=== PATIENT | female | born 1980 | race Caucasian/White ===

== ENCOUNTER → 2017-05-16 | Outpatient (CLI) | payer BC ==
[2017-05-16 12:15] LABS: HEMATOCRIT 42.4 % (37-47); HEMOGLOBIN 14.7 g/dL (12.0-16.0); MEAN CELL VOLUME 86.9 fL (80-100); MEAN CORPUSCULAR HEMOGLOBIN 30.1 pg (25-34); MEAN CORPUSCULAR HGB CONC 34.7 g/dl (32-36); PLATELET COUNT 289 K/uL (130-400); RED CELL DISTRIBUTION WIDTH CV 12.6 % (11.5-14.5); RED CELL DISTRIBUTION WIDTH SD 40.2 fL (36.4-46.3); WHITE BLOOD COUNT 4.96 K/uL (4.8-10.8)
[2017-05-16 12:39] LABS: PROLACTIN 10.69 ng/mL
[2017-05-16 13:18] LABS: HEP C IGG 13 YRS+OLDER_RFLX NEG (NEG)
== END | disposition home or self-care (01) ==
LOC: C.LAB1850 09:54
PROVIDERS: ATTEND Specialist
DX: Z13.0 Encounter for screening for diseases of the blood and blood-forming organs and certain disorders involving the immune mechanism (principal); Z11.59 Encounter for screening for other viral diseases; Z11.3 Encounter for screening for infections with a predominantly sexual mode of transmission; Z11.4 Encounter for screening for human immunodeficiency virus [HIV]; Z13.29 Encounter for screening for other suspected endocrine disorder; Z13.21 Encounter for screening for nutritional disorder; Z01.83 Encounter for blood typing

== ENCOUNTER → 2017-06-03 | Outpatient (CLI) | payer BC ==
--- NOTE | 2017-06-03 10:11 | DIAGNOSTIC IMAGING REPORT ---
HYSTEROSALPINGOGRAM CLINICAL HISTORY: 36 years-old Female presenting with Z31.41 infertility. TECHNIQUE: The cervix was cannulated by the steam distribution supervisor-loading dock helper and water soluble contrast was instilled into the uterus under fluoroscopic guidance. Multiple spot images were obtained. COMPARISON: None. FINDINGS: The uterine cavity is normal in size, shape, and position. The fallopian tubes are patent, and there is free peritoneal spill bilaterally. Fluoroscopy dosage (mGy): Not available. Fluoroscopy time: 0.3 minutes. Number of fluoroscopic spot images: 2. IMPRESSION: Normal hysterosalpingogram. Electronically signed by: Kris Wiley M.D. 06/03/2017 10:09 AM Dictated Date/Time: 06/03/2017 10:09 AM
--- NOTE | 2017-06-03 23:59 | Progress Note ---
Progress Note Date of Service Jun 03, 2017. Progress Note I met the patient in radiology suite, confirmed consent, then positioned her in dorsal lithotomy. Speculum introduced to the vagina, cervix cleansed with betadine, anterior lip grasped with tenaculum, and Gray's cannula placed against external os. Contrast was infused under fluoroscopy. Following satisfactory imaging per radiologist, the procedure was completed by removal of all instruments. Patient was in stable condition when I left her in radiology.
== END | disposition home or self-care (01) ==
LOC: C.RAD 08:42
PROVIDERS: ATTEND Obstetrics & Gynecology
DX: Z31.41 Encounter for fertility testing (principal)

== ENCOUNTER → 2017-06-25 | Outpatient (CLI) | payer BC ==
[2017-06-25 14:17] LABS: FOLLICLE STIMULAT HORMONE 6.31 IU/L; LUTEINIZING HORMONE 5.2 IU/L; PROLACTIN 13.41 ng/mL
== END | disposition home or self-care (01) ==
LOC: C.LAB1850 13:07
PROVIDERS: ATTEND Specialist
DX: Z31.41 Encounter for fertility testing (principal); Z31.430 Encounter of female for testing for genetic disease carrier status for procreative management

== ENCOUNTER → 2017-08-19 | Outpatient (CLI) | payer BC ==
[~2017-08-19] MED LIST: BCP PO; MULT-506 PO
[2017-08-19 17:38] LABS: BASO % 0.8 %; BASO ABS # 0.05 K/uL (0-0.2); EOS % 2.2 %; EOS ABS # 0.14 K/uL (0-0.5); HEMATOCRIT 39.4 % (37-47); HEMOGLOBIN 13.5 g/dL (12.0-16.0); IG# 0.01 K/uL (0.00-0.02); LYMPH % 32.5 %; LYMPH ABS # 2.05 K/uL (1.2-3.4); MEAN CELL VOLUME 87.2 fL (80-100); MEAN CORPUSCULAR HEMOGLOBIN 29.9 pg (25-34); MEAN CORPUSCULAR HGB CONC 34.3 g/dl (32-36); MEAN PLATELET VOLUME 9.9 fL (7.4-10.4); MONO % 8.7 %; MONO ABS # 0.55 K/uL (0.11-0.59); NEUT % 55.6 %; NEUT ABS # 3.51 K/uL (1.4-6.5); PLATELET COUNT 295 K/uL (130-400); RED CELL DISTRIBUTION WIDTH CV 12.7 % (11.5-14.5); RED CELL DISTRIBUTION WIDTH SD 40.7 fL (36.4-46.3); WHITE BLOOD COUNT 6.31 K/uL (4.8-10.8)
== END | disposition home or self-care (01) ==
LOC: C.LAB1850 16:02
PROVIDERS: ATTEND Obstetrics & Gynecology
DX: Z01.818 Encounter for other preprocedural examination (principal)

== ENCOUNTER → 2017-09-03 | Day surgery (SDC) | payer BC ==
[2017-08-07 14:50] VITALS: Ht 157.5 cm; Wt 50.9 kg
--- NOTE | 2017-08-19 17:28 | HISTORY & PHYSICAL EXAMINATION ---
DATE OF ADMISSION: 09/03/2017 ADMITTING DIAGNOSIS: Endometrial polyp. ADMISSION HISTORY: The patient is a 37-year-old 0, last menstrual period of 22 July, who is admitted for diagnostic hysteroscopy, D&C and removal of endometrial polyp. The patient was being worked up by infertility clinic for an IVF cycle. Pelvic ultrasound showed what appeared to be an endometrial polyp. Treatment options have been discussed and the patient has been admitted for the above listed procedure. PAST MEDICAL HISTORY: OB: Nulligravida. FREELANCE WEB DESIGNER: As above. MEDICAL: None. SURGICAL: [place] teeth extraction. ALLERGIES: No known drug allergies. SOCIAL HISTORY: No smoking. FAMILY HISTORY: Noncontributory. REVIEW OF SYSTEMS: As per HPI. ADMISSION PHYSICAL EXAMINATION: GENERAL: Pleasant female in no acute distress. VITAL SIGNS: Blood pressure 118/70, height of 5 feet 2 inches, weight 115 pounds. HEENT EXAMINATION: Unremarkable. NECK: Supple. LUNGS: Clear. HEART: With a regular rhythm and rate. ABDOMEN: Soft, nontender. PELVIC: Normal external genitalia, vaginal wall pink and rugated. Cervical os is nulliparous and closed. Bimanual examination shows an anterior mobile uterus. Adnexa show no palpable masses. RECTAL: Confirmatory. EXTREMITIES: Shows no deep calf tenderness. NEUROLOGIC: Grossly intact. IMPRESSION: 37-year-old 0 for diagnostic hysteroscopy, D&C for presumed endometrial polyp. PLAN: The risks, benefits, and alternatives to the surgery have been discussed. While the benefits will be evaluation of the endometrial lining and removal of any tissue, the risks are bleeding, infection, inadvertent perforation of the uterus, or failure to diagnose and/or treat the problem. The patient understands this, permit has been signed, and she wishes to proceed.
[~2017-09-03] VITALS: Ht 157.5 cm; Wt 50.9 kg
[~2017-09-03] MED LIST changes: +ATROPINE SULFATE 0.1 MG/ML 5ML SYR IV PRN; +DEXAMETHASONE SOD INJ 4 MG/ML VIAL ONE; +EpHEDrine SULFATE INJ 50 MG/ML AMP IV PRN; +FENTANYL CITRATE INJ 50 MCG/1 ML 2 ML VIAL IV PRN; +FENTANYL CITRATE INJ 50 MCG/1 ML 2 ML VIAL ONE; +IBUPROFEN 600 MG TAB PO PRN; +KETOROLAC TROMETHAMINE 30 MG/ML VIAL IV. PRN; +KETOROLAC TROMETHAMINE 30 MG/ML VIAL ONE; +LACTATED RINGER'S 1000ML 1,000 ML IV SCH; +LIDOCAINE HCL 2% 2 ML VIAL (20MG/ML) ONE; +MIDAZOLAM HCL 1 MG/ML 2ML VIAL ONE; +ONDANSETRON INJ 2 MG/ML 2 ML VIAL IV PRN; +ONDANSETRON INJ 2 MG/ML 2 ML VIAL ONE; +PROPOFOL IV EMULSION 10 MG/ML 20 ML VIAL ONE; +SODIUM CHLORIDE 0.9% 1000ML 1,000 ML IV SCH
--- NOTE | 2017-09-03 11:55 | History & Physical Bridge - SC ---
H&P Re-Evaluation Bridge Note: I have examined the patient, reviewed the History & Physical and in the interval since the performance of the History & Physical I have noted the following changes of clinical significance: No changes noted
--- NOTE | 2017-09-03 13:24 | [facility] Post Operative Brief Note ---
Immediate Operative Summary Operative Date September 03, 2017. Pre-Operative Diagnosis Endometrial Polyp Post-Operative Diagnosis same Procedure(s) Performed Hysteroscopy, Polypectomy Surgeon Dr. Timur Carrera Medical Science Liaison Surgeon(s) 0 Estimated Blood Loss minimal Findings See Below small left fundal polyp excised Specimens A. Endometrial Polyp Anesthesia Type General Complication(s) none Disposition Accompanied Pt To Recovery: yes Disposition: Recovery Room / PACU
--- NOTE | 2017-09-03 13:30 | Discharge Instructions-SurgCtr ---
Discharge Instructions Date of Service September 03, 2017. Visit Reason for Visit: Endometrial Polyp Discharge Discharge Diagnosis / Problem: same Discharge Goals Goal(s): Therapeutic intervention Activity Recommendations Activity Limitations: as noted below Anesthesia . Post Anesthesia Instructions: If you have had General Anesthesia or IV Sedation: * Do not drive today. * Resume driving when surgeon permits. * Do not make important decisions or sign legal documents today. * Call surgeon for: 1. Temperature elevations greater than 101 degrees F. 2. Uncontrollable pain. 3. Excessive bleeding. 4. Persistent nausea and vomiting. 5. Medication intolerance (nausea, vomiting or rash). * For nausea and vomiting use only clear liquids such as: tea, soda, bouillon until nausea subsides, then gradually increase diet as tolerated. * If you have any concerns or questions, call your surgeon's office. If physician is unavailable and it is an emergency, call 911 or go to the nearest emergency room. . Instructions / Follow-Up Instructions / Follow-Up ACTIVITY RECOMMENDATIONS: * Avoid tampons, douching, hot tubs, pools, and intercourse until bleeding has stopped. * May shower as usual. * No strenuous activity for 24-48 hours. After 24-48 hours, you may do anything you feel like doing (driving and sports are okay). SPECIAL CARE INSTRUCTIONS: Special Diet: * Mild nausea may occur in the immediate post-operative period. * Take clear liquids such as tea, cola or bouillon until all nausea has subsided; you may then resume your normal diet. Special Care: * Light bleeding and vaginal spotting can last from a few days to 3-4 weeks. Call your doctor if bleeding becomes heavier than the heaviest part of your period. * Check your temperature twice a day for one week. If it goes above 100.4 degrees Fahrenheit (38.0 Celsius), notify your doctor. * Call your doctor's office for an appointment for 6 weeks after your surgery. FOLLOW-UP VISIT: Call your doctor's office for an appointment for 6 weeks after your surgery. Diet Recommendations Home Diet: resume previous diet Procedures Procedures Performed: Hysteroscopy, Polypectomy Pending Studies Studies pending at discharge: yes List of pending studies: Pathology Medical Emergencies . Who to Call and When: Medical Emergencies: If at any time you feel your situation is an emergency, please call 911 immediately. . Non-Emergent Contact Non-Emergency issues call your: Document Control Associate Call Non-Emergent contact if: you have a fever, temperature is above 100.5 . . "Provider Documentation" section prepared by Hans Carrera. .
--- NOTE | 2017-09-03 13:53 | OPERATIVE REPORT ---
DATE OF OPERATION: 09/03/2017 PREOPERATIVE DIAGNOSIS: Endometrial polyp. POSTOPERATIVE DIAGNOSIS: Same. PROCEDURE PERFORMED: 1. Diagnostic hysteroscopy. 2. Polypectomy. SURGEON: Hans Carrera MD ANESTHESIA: General. FINDINGS: Hysteroscopic examination of the endometrial cavity showed a left fundal polyp that was excised and sent for pathological specimen. Fluid deficit for the procedure 65 mL. PROCEDURE IN DETAIL: The patient was taken to the operating room and after general anesthesia was placed in a dorsal lithotomy position and draped and prepped in the usual fashion. Bladder was drained of any residual urine. Single tooth tenaculum was used to grasp the anterior lip of the cervix. The uterus was sounded to a depth of 8 cm. The cervical os was dilated with Means dilators to a Means #25 and the MyoSure operative hysteroscope was inserted into the endometrial cavity with description as above. The resection instrument was then inserted under direct hysteroscopic guidance, the polyp was excised and sent for pathological specimen. Repeat examination showed a denuded endometrium with hemostasis. Fluid aspirated from the cavity. Fluid deficit for the procedure 65 mL. Tenaculum removed from the cervix. The patient taken out of dorsal lithotomy to recovery room in satisfactory condition. I attest to the content of the Intraoperative Record and any orders documented therein. Any exception s are noted below.
--- NOTE | 2017-09-03 14:18 | Anesthesia Progress Nt - [facility] ---
Anesthesia Post Op Note Date & Time September 03, 2017 at 14:18 Vital Signs Pain Intensity: 3 Vital Signs Past 12 Hours Date Time Temp Pulse Resp B/P (MAP) Pulse Ox O2 Delivery O2 Flow Rate FiO2 09/03/17 14:01 111/70 09/03/17 14:00 37.4 51 16 111/70 99 Room Air 09/03/17 13:59 60 20 09/03/17 13:59 58 20 100 09/03/17 13:56 115/75 09/03/17 13:54 51 19 100 09/03/17 13:54 51 19 09/03/17 13:51 107/71 09/03/17 13:49 49 18 100 09/03/17 13:49 50 18 09/03/17 13:46 106/69 09/03/17 13:44 50 11 09/03/17 13:44 49 11 100 09/03/17 13:41 113/71 09/03/17 13:39 56 15 99 09/03/17 13:39 55 15 09/03/17 13:36 112/73 09/03/17 13:34 36.5 58 12 114/76 100 Mask 6 09/03/17 11:45 37.0 58 16 120/76 (91) 99 Room Air Notes Mental Status: alert / awake / arousable, participated in evaluation Pt Amnestic to Procedure: Yes Nausea / Vomiting: adequately controlled Pain: adequately controlled Airway Patency, RR, SpO2: stable & adequate BP & HR: stable & adequate Hydration State: stable & adequate Anesthetic Complications: no major complications apparent
[2017-09-03 14:32] VITALS: BP 121/78; PULSE 61; TEMP 37.2; O2SAT 100
== END | disposition home or self-care (01) ==
LOC: X.SURG 11:30
PROVIDERS: ATTEND Obstetrics & Gynecology
DX: N84.0 Polyp of corpus uteri (principal)

== ENCOUNTER → 2017-12-05 | Outpatient (CLI) | payer BC ==
[~2017-12-05] MED LIST changes: -ATROPINE SULFATE 0.1 MG/ML 5ML SYR IV PRN; -DEXAMETHASONE SOD INJ 4 MG/ML VIAL ONE; -EpHEDrine SULFATE INJ 50 MG/ML AMP IV PRN; -FENTANYL CITRATE INJ 50 MCG/1 ML 2 ML VIAL IV PRN; -FENTANYL CITRATE INJ 50 MCG/1 ML 2 ML VIAL ONE; -IBUPROFEN 600 MG TAB PO PRN; -KETOROLAC TROMETHAMINE 30 MG/ML VIAL IV. PRN; -KETOROLAC TROMETHAMINE 30 MG/ML VIAL ONE; -LACTATED RINGER'S 1000ML 1,000 ML IV SCH; -LIDOCAINE HCL 2% 2 ML VIAL (20MG/ML) ONE; -MIDAZOLAM HCL 1 MG/ML 2ML VIAL ONE; -ONDANSETRON INJ 2 MG/ML 2 ML VIAL IV PRN; -ONDANSETRON INJ 2 MG/ML 2 ML VIAL ONE; -PROPOFOL IV EMULSION 10 MG/ML 20 ML VIAL ONE; -SODIUM CHLORIDE 0.9% 1000ML 1,000 ML IV SCH
== END | disposition home or self-care (01) ==
LOC: C.LAB1850 09:42
PROVIDERS: ATTEND Specialist
DX: Z31.41 Encounter for fertility testing (principal)

== ENCOUNTER → 2017-12-17 | Outpatient (CLI) | payer BC | END | disposition home or self-care (01) | LOC: C.LAB1850 08:45 | PROVIDERS: ATTEND Specialist | DX: Z31.41 Encounter for fertility testing (principal) ==

== ENCOUNTER 2018-09-16 07:32 | Inpatient (IN) ==
[2018-09-16] MEDS ORDERED: OXYTOCIN 30 UNITS/500 ML BAG IV PRN ×2 (08:19)
[2018-09-16 08:45] LABS: Hematocrit (blood only) 34.9 % (37-47); Hemoglobin 12.1 g/dL (12.0-16.0); Mean Corpuscular Volume 85.5 fL (80-100); Mean Platelet Volume 11.2 fL (7.4-10.4); Platelet Count 220 K/uL (130-400); RDW Coefficient of Variation 13.2 % (11.5-14.5); RDW Standard Deviation 41.2 fL (36.4-46.3); Red Blood Count 4.08 M/uL (4.2-5.4)
[2018-09-16 08:55] LABS: Mean Corpuscular Hgb Conc 34.7 g/dL (32-36)
[2018-09-16] MEDS: LACTATED RINGER'S 1,000 ML IV PRN ×3 (09:06→18:33)
[2018-09-16] MEDS ORDERED: fentaNYL citrate 100 MCG/2 ML VIAL ONE (14:10)
[2018-09-16] MEDS ORDERED: BUPIVACAINE 0.25% 30 ML VIAL ONE (14:10)
[2018-09-16] MEDS ORDERED: ePHEDrine sulfate 50 MG/ML AMP ONE (14:10)
[2018-09-16] MEDS ORDERED: fentaNYL 2MCG/ML ROPIV 1.25MG/ML 100 ML BAG EPI ONE (14:11)
--- NOTE | 2018-09-16 14:32 | Anesthesiology Consultation ---
Date of Service September 16, 2018 Assessment & Plan Chart Review Chart Review: Patient NOT seen in Pre Admission Testing and Acceptable Risk for Labor Epidural Consults Requested none ASA ASA2 Proposed Anesthesia Anesthesia Type: Labor Epidural and CSE Risk / Benefits Reviewed With: PT / POA / Parent / Guardian, Accepts Plan and Informed Consent Obtained History Height/Weight Height: 5 ft 2 in Weight: 69.853 kg Allergies Allergy/AdvReac Type Severity Reaction Status Date / Time No Known Allergies Allergy Unverified 09/03/17 11:38 Medications Home Medications Medication Instructions Recorded Confirmed Last Taken PNV cmb#95-ferrous fumarate-FA 1 tab PO DAILY 09/16/18 09/16/18 1 Day Ago [] ~09/15/18 Active Medications Generic Name Dose Route Start Last Admin Trade Name Freq PRN Reason Stop Dose Admin Lactated Ringer's 1,000 mls @ 125 mls/hr 09/16/18 08:19 09/16/18 14:20 Lr IV 09/18/18 08:18 999 mls/hr .Q8H PRN Administration L&D Protocol Protocol Oxytocin 30 units in 500 mls @ 6 mls/hr 09/16/18 08:19 09/16/18 13:06 Pitocin IV 09/18/18 08:18 0.36 units/hr .Q24H PRN 6 mls/hr Labor Induction/Augmentation Titration Protocol 0.36 UNITS/HR NPO Date Last Intake of Fluids: 09/16/18 Time Last Intake of Fluids: 12:00 Date Last Intake of Solids: 09/16/18 Time Last Intake of Solids: 06:15 Past Medical History Medical History Advanced maternal age (AMA) in In vitro fertilization Current [place] teeth extracted Exercise / Class Metabolic Activity II 4-5 Yardwork/Stairs/Walk up hill Past Surgical History Surgical History History of dilatation and curettage To prepare for IVF Past Anesthesia History No Hx of Anesthesia Complications and No Family Hx of Anesthesia Complications History of PONV No Hx of PONV Social History Smoking Status: Never smoker Do You Dip or Chew Tobacco: No Hx Alcohol Use: No Hx Substance Use: No Review of Systems no chest pain or sob Physical Exam Vital Signs Last Vital Signs Temp 36.9 C 09/16/18 13:34 Pulse 84 09/16/18 14:27 Resp 18 09/16/18 13:34 BP 135/86 09/16/18 13:05 Pulse Ox 99 09/16/18 14:27 ENMT Mouth: no TMJ abnormality Thyromental Distance: > or= 3.5 Finger Breadths Mallampati Class: II Neck normal visual inspection Respiratory normal respiratory effort Auscultation: lungs clear to auscultation bilaterally Cardiovascular Rate/Rhythm: regular rate and regular rhythm Musculoskeletal Spine: normal cervical ROM Neurologic moves all extremities Psychiatric Orientation: alert and oriented x 3 Testing Laboratory Results 09/16/18 08:27
[2018-09-16] MEDS ORDERED: NALOXONE HCL 0.4 MG/1 ML VIAL/CARP IV PRN (14:45)
[2018-09-16] MEDS ORDERED: LACTATED RINGER'S 1,000 ML IV PRN (14:45)
[2018-09-16] MEDS ORDERED: NALBUPHINE HCL INJ 10 MG/ML AMP IV PRN (14:45)
[2018-09-16] MEDS ORDERED: ePHEDrine sulfate 50 MG/ML AMP IV PRN (14:45)
[2018-09-16] MEDS ORDERED: DiphenhydrAMINE HCL 50 MG/ML VIAL IV PRN (14:45)
[2018-09-16] MEDS ORDERED: ONDANSETRON INJ 2 MG/ML 2 ML VIAL IV PRN (14:45)
[2018-09-16] MEDS ORDERED: NALOXONE HCL 1 MG in SODIUM CHLORIDE 0.9% 1000ML 1,000 ML IV PRN (14:45)
[2018-09-16] MEDS: fentaNYL 2MCG/ML ROPIV 1.25MG/ML 100 ML BAG EPI PRN ×2 (20:12→23:52)
--- NOTE | 2018-09-16 22:02 | History & Physical Report ---
Date of Service September 16, 2018 Assessment & Plan (1) resulting from in vitro fertilization in third trimester: Admit, pitocin, Iv fluids, EFM/toco. Epidural when she desires. History of Present Illness Chief Complaint: IOL for postdates Primary Care Provider: Brianda Gutierrez MD 38yo @ 40 07/09 presents for eIOL beyond due date. 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 Allergies Allergy/AdvReac Type Severity Reaction Status Date / Time No Known Allergies Allergy Unverified 09/03/17 11:38 Home Medications Home Medications Medication Instructions Recorded Confirmed Type PNV cmb#95-ferrous fumarate-FA 1 tab PO DAILY 09/16/18 09/16/18 History [] Patient History Medical History Advanced maternal age (AMA) in In vitro fertilization Current [place] teeth extracted Surgical History History of dilatation and curettage To prepare for IVF Social History Preferred Language: Wol[place] Communication Ability: Effective Twister Doffer Required: No Beliefs That Will Affect Care: None marital status: Current Living Situation: Spouse Other Information That Helps Us Care for You: No Feels Safe at Home: Yes Safety Concerns: Feels Safe At This Time Smoking Status: Never smoker Do You Dip or Chew Tobacco: No Second Hand Exposure: No Tobacco Cessation Education Requested by Patient: No Hx Alcohol Use: No Hx Substance Use: No Review of Systems All systems reviewed & are unremarkable except as noted in HPI & below Physical Exam Physical Exam: Gen: AAOx3 NAD CV: [id number] L: CTAB Abd: soft, gravid, NTTP. Ext: no edema AROM performed clear fluid at approx 1:30pm. FHT Cat 1 [place]: Every 2-3 min Results & Data Vital Signs (Past 12 Hours) Vital Signs Temp Pulse Resp BP Pulse Ox 09/16/18 21:55 101 H 127/69 09/16/18 21:52 95 H 98 09/16/18 21:47 111 H 97 09/16/18 21:44 106 H 93 09/16/18 21:42 106 H 97 09/16/18 21:41 95 H 119/73 09/16/18 21:37 113 H 99 09/16/18 21:32 103 H 98 09/16/18 21:27 101 H 98 09/16/18 21:25 101 H 131/82 09/16/18 21:22 99 H 97 09/16/18 21:17 83 97 09/16/18 21:12 90 97 09/16/18 21:11 86 126/75 09/16/18 21:07 91 H 97 09/16/18 21:02 97 H 98 09/16/18 21:00 99.3 F 20 09/16/18 20:57 100 H 97 09/16/18 20:54 105 H 144/86 H 09/16/18 20:52 103 H 98 09/16/18 20:47 89 97 09/16/18 20:42 85 98 09/16/18 20:40 85 136/76 09/16/18 20:37 97 H 98 09/16/18 20:32 98 H 97 09/16/18 20:30 20 09/16/18 20:27 92 H 98 09/16/18 20:25 94 H 144/79 H 09/16/18 20:22 93 H 98 09/16/18 20:17 94 H 98 09/16/18 20:12 89 97 09/16/18 20:07 93 H 98 09/16/18 20:02 102 H 99 09/16/18 20:00 20 09/16/18 19:57 97 H 98 09/16/18 19:55 100 H 138/85 09/16/18 19:52 96 H 97 09/16/18 19:47 114 H 97 09/16/18 19:42 114 H 97 09/16/18 19:40 111 H 136/69 09/16/18 19:37 104 H 97 09/16/18 19:32 102 H 98 09/16/18 19:30 20 09/16/18 19:27 103 H 98 09/16/18 19:26 104 H 118/72 09/16/18 19:22 107 H 98 09/16/18 19:17 103 H 97 09/16/18 19:12 104 H 98 09/16/18 19:11 107 H 108/71 09/16/18 19:10 98.8 F 18 05/15/19 19:07 107 H 98 05 19:02 102 H 98 0515 18:57 109 H 99 05 18:55 100 H 144/67 H 19 18:52 96 H 99 051519 18:47 97 H 97 051519 18:42 111 H 98 15 18:40 100 H 109/71 0515 18:37 101 H 98 0515 18:36 99.5 F 94 H 20 130/68 05 18:32 99 H 98 0515 18:27 90 99 0515 18:26 169 H 135/96 15 18:22 88 98 05 18:17 82 98 05 18:12 81 98 05 18:10 78 154/88 H 09/16/18 18:07 77 98 0515 18:02 87 99 09/16/18 17:57 84 98 09/16/18 17:55 79 18 143/83 H 09/16/18 17:52 98 H 97 09/16/18 17:47 91 H 97 09/16/18 17:42 86 98 15 17:40 93 H 148/82 H 09/16/18 17:37 82 99 15 17:32 90 98 1519 17:27 94 H 99 09/16/18 17:25 80 153/86 H 09/16/18 17:22 87 98 09/16/18 17:17 80 99 09/16/18 17:12 81 99 09/16/18 17:10 76 16 142/82 H 09/16/18 17:07 79 99 09/16/18 17:02 91 H 99 1519 16:57 83 98 051519 16:55 119/63 051519 16:52 84 99 0515/19 16:47 83 98 0515/19 16:42 97 H 98 0515/19 16:41 84 16 108/67 0515/19 16:37 88 98 0515/19 16:32 83 97 051519 16:27 96 H 98 1519 16:26 98.8 F 81 18 135/80 0515 16:22 91 H 97 15 16:17 77 98 0515 16:12 92 H 98 09/16/18 16:11 86 18 133/73 0515 16:07 78 99 0515 16:02 86 99 15 15:57 77 97 0515/ 15:53 95 H 117/71 05 15:52 95 H 96 09/16/18 15:51 88 107/65 05 15:49 88 103/66 0515 15:47 96 H 121/64 97 15 15:45 90 117/72 05 15:43 86 121/65 15 15:42 71 127/57 L 97 09/16/18 15:40 134 H 93/66 L 09/16/18 15:37 93 H 128/74 98 09/16/18 15:35 91 H 121/73 05 15:33 92 H 117/70 09/16/18 15:32 92 H 96 09/16/18 15:31 75 118/64 05 15:30 83 116/66 0515 15:27 82 18 122/69 96 15 15:25 74 116/64 0515 15:23 78 18 116/70 0515/19 15:22 76 97 15 15:21 75 18 116/65 0515/ 15:19 83 121/67 0515 15:17 70 18 110/66 97 09/16/18 15:15 74 112/64 0515/19 15:13 83 18 110/57 L 09/16/18 15:12 78 97 0515 15:11 74 18 118/62 0515 15:10 71 121/63 0515 15:07 98.6 F 86 18 113/56 L 96 09/16/18 15:05 89 140/74 0515 15:02 85 205/116 H 95 15 14:59 72 137/89 0515 14:57 84 135/82 96 15 14:55 85 134/79 0515 14:53 76 142/84 H 09/16/18 14:52 78 96 09/16/18 14:51 78 146/83 H 09/16/18 14:49 73 145/86 H 09/16/18 14:47 73 146/84 H 96 09/16/18 14:45 77 156/86 H 09/16/18 14:43 70 159/74 H 09/16/18 14:42 75 99 09/16/18 14:41 80 158/84 H 09/16/18 14:37 79 98 09/16/18 14:32 68 98 09/16/18 14:27 84 99 09/16/18 14:22 73 97 09/16/18 13:34 98.4 F 18 09/16/18 13:05 83 18 135/86 09/16/18 12:02 73 18 140/92 09/16/18 10:53 98.6 F 68 18 141/87 H
[2018-09-17] MEDS: LACTATED RINGER'S 1,000 ML IV PRN ×3 (00:16→13:23)
[2018-09-17] MEDS: fentaNYL 2MCG/ML ROPIV 1.25MG/ML 100 ML BAG EPI PRN ×2 (01:15→06:43)
[2018-09-17] MEDS ORDERED: Nursing to Pharmacy Communication ONE (01:23)
--- NOTE | 2018-09-17 02:17 | Obstetrical Progress Note ---
Date of Service September 17, 2018 Subjective Comfortable with epidural. FHT Cat 1 [place] Q 2 SVE 7-8/100/0 Continue pitocin. Results & Data Vital Signs (Past 12 Hours) Vital Signs Temp Pulse Resp BP Pulse Ox 09/17/18 02:12 98 H 97 09/17/18 02:11 101 H 116/59 L 09/17/18 02:10 99.3 F 09/17/18 02:09 114 H 92 09/17/18 02:07 95 H 97 09/17/18 02:03 90 94 09/17/18 02:02 89 95 09/17/18 02:00 20 09/17/18 01:57 89 96 09/17/18 01:56 98 H 126/75 09/17/18 01:55 100 H 128/79 09/17/18 01:54 101 H 94 09/17/18 01:52 92 H 96 09/17/18 01:49 85 94 09/17/18 01:47 98 H 96 09/17/18 01:42 89 94 09/17/18 01:40 88 125/70 09/17/18 01:37 86 94 09/17/18 01:32 89 94 09/17/18 01:31 84 94 09/17/18 01:27 88 96 09/17/18 01:26 91 H 129/80 09/17/18 01:23 83 94 09/17/18 01:22 85 95 09/17/18 01:17 99.3 F 99 H 20 97 09/17/18 01:12 111 H 97 09/17/18 01:09 100 H 119/72 09/17/18 01:07 111 H 97 09/17/18 01:02 92 H 96 09/17/18 01:00 20 09/17/18 00:57 92 H 95 09/17/18 00:56 94 H 110/66 09/17/18 00:52 98 H 95 09/17/18 00:47 105 H 97 09/17/18 00:42 110 H 96 09/17/18 00:41 92 H 116/69 09/17/18 00:37 95 H 96 09/17/18 00:32 103 H 97 09/17/18 00:27 99 H 97 09/17/18 00:25 107 H 124/83 09/17/18 00:22 101 H 97 09/17/18 00:21 108 H 93 09/17/18 00:17 106 H 96 09/17/18 00:15 100.0 F H 109 H 93 09/17/18 00:12 96 H 98 09/17/18 00:11 98 H 133/78 09/17/18 00:07 104 H 97 09/17/18 00:02 104 H 98 09/16/18 23:57 105 H 98 09/16/18 23:54 102 H 123/71 09/16/18 23:52 100 H 97 09/16/18 23:50 101 H 93 09/16/18 23:47 95 H 98 09/16/18 23:42 110 H 98 09/16/18 23:41 107 H 121/76 09/16/18 23:37 112 H 98 09/16/18 23:32 104 H 98 09/16/18 23:27 93 H 97 09/16/18 23:25 95 H 125/78 09/16/18 23:22 106 H 97 09/16/18 23:17 93 H 97 09/16/18 23:12 92 H 98 09/16/18 23:11 96 H 127/81 09/16/18 23:07 90 97 09/16/18 23:02 91 H 97 09/16/18 23:00 20 09/16/18 22:57 90 98 09/16/18 22:56 91 H 130/78 09/16/18 22:52 115 H 98 09/16/18 22:47 105 H 99 09/16/18 22:42 98 H 98 09/16/18 22:40 97 H 130/80 09/16/18 22:37 114 H 98 09/16/18 22:32 101 H 98 09/16/18 22:27 105 H 98 09/16/18 22:25 107 H 134/81 09/16/18 22:22 107 H 98 09/16/18 22:17 114 H 98 09/16/18 22:12 100 H 98 09/16/18 22:10 116 H 112/73 09/16/18 22:07 91 H 96 09/16/18 22:02 98 H 97 09/16/18 22:00 20 09/16/18 21:57 97 H 97 09/16/18 21:55 101 H 127/69 09/16/18 21:52 95 H 98 09/16/18 21:47 111 H 97 09/16/18 21:44 106 H 93 09/16/18 21:42 106 H 97 09/16/18 21:41 95 H 119/73 09/16/18 21:37 113 H 99 09/16/18 21:32 103 H 98 09/16/18 21:27 101 H 98 09/16/18 21:25 101 H 131/82 09/16/18 21:22 99 H 97 09/16/18 21:17 83 97 09/16/18 21:12 90 97 09/16/18 21:11 86 126/75 09/16/18 21:07 91 H 97 09/16/18 21:02 97 H 98 09/16/18 21:00 99.3 F 20 09/16/18 20:57 100 H 97 09/16/18 20:54 105 H 144/86 H 09/16/18 20:52 103 H 98 09/16/18 20:47 89 97 09/16/18 20:42 85 98 09/16/18 20:40 85 136/76 09/16/18 20:37 97 H 98 09/16/18 20:32 98 H 97 09/16/18 20:30 20 09/16/18 20:27 92 H 98 09/16/18 20:25 94 H 144/79 H 09/16/18 20:22 93 H 98 09/16/18 20:17 94 H 98 09/16/18 20:12 89 97 09/16/18 20:07 93 H 98 09/16/18 20:02 102 H 99 09/16/18 20:00 20 09/16/18 19:57 97 H 98 09/16/18 19:55 100 H 138/85 09/16/18 19:52 96 H 97 09/16/18 19:47 114 H 97 09/16/18 19:42 114 H 97 09/16/18 19:40 111 H 136/69 09/16/18 19:37 104 H 97 09/16/18 19:32 102 H 98 09/16/18 19:30 20 09/16/18 19:27 103 H 98 09/16/18 19:26 104 H 118/72 05/15/19 19:22 107 H 98 0515 19:17 103 H 97 05 19:12 104 H 98 09/16/18 19:11 107 H 108/71 05 19:10 98.8 F 18 05 19:07 107 H 98 0515 19:02 102 H 98 15 18:57 109 H 99 09/16/18 18:55 100 H 144/67 H 09/16/18 18:52 96 H 99 09/16/18 18:47 97 H 97 09/16/18 18:42 111 H 98 09/16/18 18:40 100 H 109/71 09/16/18 18:37 101 H 98 09/16/18 18:36 99.5 F 94 H 20 130/68 09/16/18 18:32 99 H 98 09/16/18 18:27 90 99 09/16/18 18:26 169 H 135/96 09/16/18 18:22 88 98 09/16/18 18:17 82 98 05 18:12 81 98 09/16/18 18:10 78 154/88 H 09/16/18 18:07 77 98 09/16/18 18:02 87 99 09/16/18 17:57 84 98 09/16/18 17:55 79 18 143/83 H 09/16/18 17:52 98 H 97 09/16/18 17:47 91 H 97 09/16/18 17:42 86 98 09/16/18 17:40 93 H 148/82 H 09/16/18 17:37 82 99 05 17:32 90 98 09/16/18 17:27 94 H 99 09/16/18 17:25 80 153/86 H 09/16/18 17:22 87 98 05 17:17 80 99 05 17:12 81 99 09/16/18 17:10 76 16 142/82 H 09/16/18 17:07 79 99 09/16/18 17:02 91 H 99 15 16:57 83 98 051519 16:55 119/63 051519 16:52 84 99 051519 16:47 83 98 05/15/19 16:42 97 H 98 0515/19 16:41 84 16 108/67 05/15/19 16:37 88 98 0515/19 16:32 83 97 0515/19 16:27 96 H 98 0515/19 16:26 98.8 F 81 18 135/80 0515/ 16:22 91 H 97 0515/ 16:17 77 98 0515 16:12 92 H 98 15 16:11 86 18 133/73 0515/19 16:07 78 99 0515/ 16:02 86 99 0515/19 15:57 77 97 0515/ 15:53 95 H 117/71 0515/ 15:52 95 H 96 0515/ 15:51 88 107/65 0515/19 15:49 88 103/66 0515/ 15:47 96 H 121/64 97 0515/ 15:45 90 117/72 0515/ 15:43 86 121/65 0515/19 15:42 71 127/57 L 97 09/16/18 15:40 134 H 93/66 L 15/ 15:37 93 H 128/74 98 0515/ 15:35 91 H 121/73 0515/ 15:33 92 H 117/70 0515/19 15:32 92 H 96 0515/ 15:31 75 118/64 05/15/19 15:30 83 116/66 05/15/19 15:27 82 18 122/69 96 0515/19 15:25 74 116/64 05/15/19 15:23 78 18 116/70 05/15/19 15:22 76 97 05/15/19 15:21 75 18 116/65 05/15/19 15:19 83 121/67 0515/19 15:17 70 18 110/66 97 0515/19 15:15 74 112/64 05/15/19 15:13 83 18 110/57 L 0515/ 15:12 78 97 05/15/19 15:11 74 18 118/62 05/15/19 15:10 71 121/63 0515/19 15:07 98.6 F 86 18 113/56 L 96 09/16/18 15:05 89 140/74 09/16/18 15:02 85 205/116 H 95 09/16/18 14:59 72 137/89 09/16/18 14:57 84 135/82 96 09/16/18 14:55 85 134/79 09/16/18 14:53 76 142/84 H 09/16/18 14:52 78 96 09/16/18 14:51 78 146/83 H 09/16/18 14:49 73 145/86 H 09/16/18 14:47 73 146/84 H 96 09/16/18 14:45 77 156/86 H 09/16/18 14:43 70 159/74 H 09/16/18 14:42 75 99 09/16/18 14:41 80 158/84 H 09/16/18 14:37 79 98 09/16/18 14:32 68 98 09/16/18 14:27 84 99 09/16/18 14:22 73 97
[2018-09-17] MEDS ORDERED: BUPIVACAINE 0.25% 30 ML VIAL ONE (08:02)
--- NOTE | 2018-09-17 08:14 | Obstetrical Progress Note ---
Date of Service September 17, 2018 Subjective Patient is feeling increased pain/pressure with ctx. FHT have shown occasional late decelerations, with a frequency of approx one time per hour overnight. At about 7am today, she did develop more late decelerations. Cervix at that time was 9/100/0. She was repositioned and FHT recovered. Within the past 20 minutes, she developed variable and late decelerations, and pitocin was stopped to resuscitate baby. At this time, FHT have recovered and she is having early decelerations with ctx. Ctx Q 4 min. She has had minimal urine output overnight and significant edema of the vulva. She has rec'd 2 fluid boluses of 250cc each time overnight, and has scant blood- tinged urine. The gonzalez catheter was removed and the bladder and attempt was made to drain the bladder with a straight catheter, thinking the gonzalez may be clogged. This yielded minimal urine. Results & Data Vital Signs (Past 12 Hours) Vital Signs Temp Pulse Resp BP Pulse Ox 09/17/18 08:07 96 H 97 09/17/18 08:02 92 H 97 09/17/18 07:57 97 H 98 09/17/18 07:56 98 H 127/87 09/17/18 07:52 87 97 09/17/18 07:47 89 96 09/17/18 07:42 88 97 09/17/18 07:41 85 121/79 09/17/18 07:37 91 H 97 09/17/18 07:32 91 H 97 09/17/18 07:27 91 H 130/82 97 09/17/18 07:22 97 H 96 09/17/18 07:17 99 H 97 09/17/18 07:12 100 H 132/83 96 09/17/18 07:10 99.1 F 22 09/17/18 07:07 98 H 97 09/17/18 07:02 101 H 97 09/17/18 06:57 94 H 125/79 96 09/17/18 06:52 100 H 96 09/17/18 06:47 109 H 97 09/17/18 06:43 101 H 122/81 09/17/18 06:42 100 H 97 09/17/18 06:38 96 H 92 09/17/18 06:37 98 H 98 05/16/19 06:32 96 H 96 09/17/18 06:30 20 09/17/18 06:27 97 H 93 09/17/18 06:26 102 H 122/77 09/17/18 06:22 97 H 95 09/17/18 06:17 103 H 97 09/17/18 06:12 104 H 95 09/17/18 06:11 97 H 126/76 09/17/18 06:07 108 H 96 09/17/18 06:02 96 H 96 09/17/18 05:57 99 H 125/72 97 09/17/18 05:56 99.3 F 20 09/17/18 05:52 90 93 09/17/18 05:48 90 94 09/17/18 05:47 90 95 09/17/18 05:43 107 H 124/67 09/17/18 05:42 92 H 96 09/17/18 05:37 110 H 95 09/17/18 05:36 111 H 94 09/17/18 05:32 99 H 95 09/17/18 05:27 92 H 113/62 94 09/17/18 05:22 92 H 94 09/17/18 05:17 90 93 09/17/18 05:12 88 94 09/17/18 05:11 86 97/53 L 09/17/18 05:08 84 94 09/17/18 05:07 94 H 94 09/17/18 05:03 88 94 09/17/18 05:02 87 94 09/17/18 05:00 20 09/17/18 04:58 118 H 93 09/17/18 04:57 116 H 110/66 95 09/17/18 04:52 87 93 09/17/18 04:47 84 93 09/17/18 04:45 86 94 09/17/18 04:42 102 H 96 09/17/18 04:41 115 H 108/70 09/17/18 04:39 86 94 09/17/18 04:37 90 93 09/17/18 04:32 86 93 09/17/18 04:27 84 111/70 94 09/17/18 04:22 103 H 94 09/17/18 04:20 88 94 09/17/18 04:17 95 H 95 09/17/18 04:14 93 H 94 09/17/18 04:13 92 H 107/67 05/16/19 04:12 87 95 09/17/18 04:07 98 H 97 09/17/18 04:02 88 97 09/17/18 04:00 99.3 F 20 09/17/18 03:58 99 H 94 09/17/18 03:57 105 H 113/70 97 09/17/18 03:52 101 H 98 09/17/18 03:47 92 H 97 09/17/18 03:42 101 H 110/69 97 09/17/18 03:38 101 H 91 09/17/18 03:37 95 H 97 09/17/18 03:32 90 97 09/17/18 03:27 105 H 131/60 97 09/17/18 03:22 98 H 98 09/17/18 03:17 94 H 95 09/17/18 03:15 89 94 09/17/18 03:12 91 H 96 09/17/18 03:11 100 H 112/64 09/17/18 03:08 93 H 94 09/17/18 03:07 96 H 94 09/17/18 03:03 92 H 94 09/17/18 03:02 92 H 95 09/17/18 02:58 93 H 94 09/17/18 02:57 93 H 95 09/17/18 02:56 93 H 108/64 09/17/18 02:52 94 H 94 09/17/18 02:47 90 94 09/17/18 02:46 86 94 09/17/18 02:43 84 103/65 09/17/18 02:42 85 95 09/17/18 02:37 87 95 09/17/18 02:35 83 94 09/17/18 02:32 87 94 09/17/18 02:30 86 94 09/17/18 02:29 20 09/17/18 02:27 86 104/60 95 09/17/18 02:25 84 94 09/17/18 02:22 88 95 09/17/18 02:20 91 H 94 09/17/18 02:17 94 H 95 09/17/18 02:12 98 H 97 09/17/18 02:11 101 H 116/59 L 09/17/18 02:10 99.3 F 09/17/18 02:09 114 H 92 09/17/18 02:07 95 H 97 09/17/18 02:03 90 94 09/17/18 02:02 89 95 09/17/18 02:00 20 09/17/18 01:57 89 96 09/17/18 01:56 98 H 126/75 09/17/18 01:55 100 H 128/79 09/17/18 01:54 101 H 94 09/17/18 01:52 92 H 96 09/17/18 01:49 85 94 09/17/18 01:47 98 H 96 09/17/18 01:42 89 94 09/17/18 01:40 88 125/70 09/17/18 01:37 86 94 09/17/18 01:32 89 94 09/17/18 01:31 84 94 09/17/18 01:27 88 96 09/17/18 01:26 91 H 129/80 09/17/18 01:23 83 94 09/17/18 01:22 85 95 09/17/18 01:17 99.3 F 99 H 20 97 09/17/18 01:12 111 H 97 09/17/18 01:09 100 H 119/72 09/17/18 01:07 111 H 97 09/17/18 01:02 92 H 96 09/17/18 01:00 20 09/17/18 00:57 92 H 95 09/17/18 00:56 94 H 110/66 09/17/18 00:52 98 H 95 09/17/18 00:47 105 H 97 09/17/18 00:42 110 H 96 09/17/18 00:41 92 H 116/69 09/17/18 00:37 95 H 96 09/17/18 00:32 103 H 97 09/17/18 00:27 99 H 97 09/17/18 00:25 107 H 124/83 09/17/18 00:22 101 H 97 09/17/18 00:21 108 H 93 09/17/18 00:17 106 H 96 09/17/18 00:15 100.0 F H 109 H 93 09/17/18 00:12 96 H 98 09/17/18 00:11 98 H 133/78 09/17/18 00:07 104 H 97 09/17/18 00:02 104 H 98 09/16/18 23:57 105 H 98 09/16/18 23:54 102 H 123/71 09/16/18 23:52 100 H 97 09/16/18 23:50 101 H 93 09/16/18 23:47 95 H 98 09/16/18 23:42 110 H 98 09/16/18 23:41 107 H 121/76 09/16/18 23:37 112 H 98 09/16/18 23:32 104 H 98 09/16/18 23:27 93 H 97 09/16/18 23:25 95 H 125/78 09/16/18 23:22 106 H 97 09/16/18 23:17 93 H 97 09/16/18 23:12 92 H 98 09/16/18 23:11 96 H 127/81 09/16/18 23:07 90 97 09/16/18 23:02 91 H 97 09/16/18 23:00 20 09/16/18 22:57 90 98 09/16/18 22:56 91 H 130/78 09/16/18 22:52 115 H 98 09/16/18 22:47 105 H 99 09/16/18 22:42 98 H 98 09/16/18 22:40 97 H 130/80 09/16/18 22:37 114 H 98 09/16/18 22:32 101 H 98 09/16/18 22:27 105 H 98 09/16/18 22:25 107 H 134/81 09/16/18 22:22 107 H 98 09/16/18 22:17 114 H 98 09/16/18 22:12 100 H 98 09/16/18 22:10 116 H 112/73 09/16/18 22:07 91 H 96 09/16/18 22:02 98 H 97 09/16/18 22:00 20 09/16/18 21:57 97 H 97 09/16/18 21:55 101 H 127/69 09/16/18 21:52 95 H 98 09/16/18 21:47 111 H 97 09/16/18 21:44 106 H 93 09/16/18 21:42 106 H 97 09/16/18 21:41 95 H 119/73 09/16/18 21:37 113 H 99 09/16/18 21:32 103 H 98 09/16/18 21:27 101 H 98 09/16/18 21:25 101 H 131/82 09/16/18 21:22 99 H 97 09/16/18 21:17 83 97 09/16/18 21:12 90 97 09/16/18 21:11 86 126/75 09/16/18 21:07 91 H 97 09/16/18 21:02 97 H 98 09/16/18 21:00 99.3 F 20 09/16/18 20:57 100 H 97 09/16/18 20:54 105 H 144/86 H 09/16/18 20:52 103 H 98 09/16/18 20:47 89 97 09/16/18 20:42 85 98 09/16/18 20:40 85 136/76 09/16/18 20:37 97 H 98 09/16/18 20:32 98 H 97 09/16/18 20:30 20 09/16/18 20:27 92 H 98 09/16/18 20:25 94 H 144/79 H 09/16/18 20:22 93 H 98 09/16/18 20:17 94 H 98 09/16/18 20:12 89 97
--- NOTE | 2018-09-17 08:17 | Obstetrical Progress Note ---
Date of Service September 17, 2018 Subjective Attempted to add to previous note, but it has disappeared from computer system. I discussed the FHT with patient, discussed that we will give a break from pitocin to allow baby to recover, then will plan to restart. She is aware that if the FHT worsens, would be recommended. Results & Data Vital Signs (Past 12 Hours) Vital Signs Temp Pulse Resp BP Pulse Ox 09/17/18 08:13 93 H 129/89 09/17/18 08:12 93 H 97 09/17/18 08:11 94 H 134/88 09/17/18 08:09 90 130/89 09/17/18 08:07 96 H 97 09/17/18 08:02 92 H 97 09/17/18 07:57 97 H 98 09/17/18 07:56 98 H 127/87 09/17/18 07:52 87 97 09/17/18 07:47 89 96 09/17/18 07:42 88 97 09/17/18 07:41 85 121/79 09/17/18 07:37 91 H 97 09/17/18 07:32 91 H 97 09/17/18 07:27 91 H 130/82 97 09/17/18 07:22 97 H 96 09/17/18 07:17 99 H 97 09/17/18 07:12 100 H 132/83 96 09/17/18 07:10 99.1 F 22 09/17/18 07:07 98 H 97 09/17/18 07:02 101 H 97 09/17/18 06:57 94 H 125/79 96 09/17/18 06:52 100 H 96 09/17/18 06:47 109 H 97 09/17/18 06:43 101 H 122/81 09/17/18 06:42 100 H 97 09/17/18 06:38 96 H 92 09/17/18 06:37 98 H 98 09/17/18 06:32 96 H 96 09/17/18 06:30 20 09/17/18 06:27 97 H 93 09/17/18 06:26 102 H 122/77 09/17/18 06:22 97 H 95 09/17/18 06:17 103 H 97 09/17/18 06:12 104 H 95 09/17/18 06:11 97 H 126/76 09/17/18 06:07 108 H 96 09/17/18 06:02 96 H 96 09/17/18 05:57 99 H 125/72 97 09/17/18 05:56 99.3 F 20 09/17/18 05:52 90 93 09/17/18 05:48 90 94 09/17/18 05:47 90 95 09/17/18 05:43 107 H 124/67 09/17/18 05:42 92 H 96 09/17/18 05:37 110 H 95 09/17/18 05:36 111 H 94 09/17/18 05:32 99 H 95 09/17/18 05:27 92 H 113/62 94 09/17/18 05:22 92 H 94 09/17/18 05:17 90 93 09/17/18 05:12 88 94 09/17/18 05:11 86 97/53 L 09/17/18 05:08 84 94 09/17/18 05:07 94 H 94 09/17/18 05:03 88 94 09/17/18 05:02 87 94 09/17/18 05:00 20 09/17/18 04:58 118 H 93 09/17/18 04:57 116 H 110/66 95 09/17/18 04:52 87 93 09/17/18 04:47 84 93 09/17/18 04:45 86 94 09/17/18 04:42 102 H 96 09/17/18 04:41 115 H 108/70 09/17/18 04:39 86 94 09/17/18 04:37 90 93 09/17/18 04:32 86 93 09/17/18 04:27 84 111/70 94 09/17/18 04:22 103 H 94 09/17/18 04:20 88 94 09/17/18 04:17 95 H 95 09/17/18 04:14 93 H 94 09/17/18 04:13 92 H 107/67 09/17/18 04:12 87 95 09/17/18 04:07 98 H 97 09/17/18 04:02 88 97 09/17/18 04:00 99.3 F 20 09/17/18 03:58 99 H 94 09/17/18 03:57 105 H 113/70 97 09/17/18 03:52 101 H 98 09/17/18 03:47 92 H 97 09/17/18 03:42 101 H 110/69 97 09/17/18 03:38 101 H 91 09/17/18 03:37 95 H 97 09/17/18 03:32 90 97 09/17/18 03:27 105 H 131/60 97 09/17/18 03:22 98 H 98 09/17/18 03:17 94 H 95 09/17/18 03:15 89 94 09/17/18 03:12 91 H 96 09/17/18 03:11 100 H 112/64 09/17/18 03:08 93 H 94 09/17/18 03:07 96 H 94 09/17/18 03:03 92 H 94 09/17/18 03:02 92 H 95 09/17/18 02:58 93 H 94 09/17/18 02:57 93 H 95 09/17/18 02:56 93 H 108/64 09/17/18 02:52 94 H 94 09/17/18 02:47 90 94 09/17/18 02:46 86 94 09/17/18 02:43 84 103/65 09/17/18 02:42 85 95 09/17/18 02:37 87 95 09/17/18 02:35 83 94 09/17/18 02:32 87 94 09/17/18 02:30 86 94 09/17/18 02:29 20 09/17/18 02:27 86 104/60 95 09/17/18 02:25 84 94 09/17/18 02:22 88 95 09/17/18 02:20 91 H 94 09/17/18 02:17 94 H 95 09/17/18 02:12 98 H 97 09/17/18 02:11 101 H 116/59 L 09/17/18 02:10 99.3 F 09/17/18 02:09 114 H 92 09/17/18 02:07 95 H 97 09/17/18 02:03 90 94 09/17/18 02:02 89 95 09/17/18 02:00 20 09/17/18 01:57 89 96 09/17/18 01:56 98 H 126/75 09/17/18 01:55 100 H 128/79 09/17/18 01:54 101 H 94 09/17/18 01:52 92 H 96 09/17/18 01:49 85 94 09/17/18 01:47 98 H 96 09/17/18 01:42 89 94 09/17/18 01:40 88 125/70 09/17/18 01:37 86 94 09/17/18 01:32 89 94 09/17/18 01:31 84 94 09/17/18 01:27 88 96 09/17/18 01:26 91 H 129/80 09/17/18 01:23 83 94 09/17/18 01:22 85 95 09/17/18 01:17 99.3 F 99 H 20 97 09/17/18 01:12 111 H 97 09/17/18 01:09 100 H 119/72 09/17/18 01:07 111 H 97 09/17/18 01:02 92 H 96 09/17/18 01:00 20 09/17/18 00:57 92 H 95 09/17/18 00:56 94 H 110/66 09/17/18 00:52 98 H 95 09/17/18 00:47 105 H 97 09/17/18 00:42 110 H 96 09/17/18 00:41 92 H 116/69 09/17/18 00:37 95 H 96 09/17/18 00:32 103 H 97 09/17/18 00:27 99 H 97 09/17/18 00:25 107 H 124/83 09/17/18 00:22 101 H 97 09/17/18 00:21 108 H 93 09/17/18 00:17 106 H 96 09/17/18 00:15 100.0 F H 109 H 93 09/17/18 00:12 96 H 98 09/17/18 00:11 98 H 133/78 09/17/18 00:07 104 H 97 09/17/18 00:02 104 H 98 09/16/18 23:57 105 H 98 09/16/18 23:54 102 H 123/71 09/16/18 23:52 100 H 97 09/16/18 23:50 101 H 93 09/16/18 23:47 95 H 98 09/16/18 23:42 110 H 98 09/16/18 23:41 107 H 121/76 09/16/18 23:37 112 H 98 09/16/18 23:32 104 H 98 09/16/18 23:27 93 H 97 09/16/18 23:25 95 H 125/78 09/16/18 23:22 106 H 97 09/16/18 23:17 93 H 97 09/16/18 23:12 92 H 98 09/16/18 23:11 96 H 127/81 09/16/18 23:07 90 97 09/16/18 23:02 91 H 97 09/16/18 23:00 20 09/16/18 22:57 90 98 09/16/18 22:56 91 H 130/78 09/16/18 22:52 115 H 98 09/16/18 22:47 105 H 99 09/16/18 22:42 98 H 98 09/16/18 22:40 97 H 130/80 09/16/18 22:37 114 H 98 09/16/18 22:32 101 H 98 09/16/18 22:27 105 H 98 09/16/18 22:25 107 H 134/81 09/16/18 22:22 107 H 98 09/16/18 22:17 114 H 98 09/16/18 22:12 100 H 98 09/16/18 22:10 116 H 112/73 09/16/18 22:07 91 H 96 09/16/18 22:02 98 H 97 09/16/18 22:00 20 09/16/18 21:57 97 H 97 09/16/18 21:55 101 H 127/69 09/16/18 21:52 95 H 98 09/16/18 21:47 111 H 97 09/16/18 21:44 106 H 93 09/16/18 21:42 106 H 97 09/16/18 21:41 95 H 119/73 09/16/18 21:37 113 H 99 09/16/18 21:32 103 H 98 09/16/18 21:27 101 H 98 09/16/18 21:25 101 H 131/82 09/16/18 21:22 99 H 97 09/16/18 21:17 83 97 09/16/18 21:12 90 97 09/16/18 21:11 86 126/75 09/16/18 21:07 91 H 97 09/16/18 21:02 97 H 98 09/16/18 21:00 99.3 F 20 09/16/18 20:57 100 H 97 09/16/18 20:54 105 H 144/86 H 09/16/18 20:52 103 H 98 09/16/18 20:47 89 97 09/16/18 20:42 85 98 09/16/18 20:40 85 136/76 09/16/18 20:37 97 H 98 09/16/18 20:32 98 H 97 09/16/18 20:30 20 09/16/18 20:27 92 H 98 09/16/18 20:25 94 H 144/79 H 09/16/18 20:22 93 H 98 09/16/18 20:17 94 H 98
[2018-09-17 12:03] LABS: Base Excess Cord Venous Blood -7.7 mEq/L (-7.7-1.9); Cord Venous Blood HCO3 18 mmol/L (18.4-26.8); Cord Venous Blood PCO2 38 mmHg (30.4-57.2); Cord Venous Blood PO2 27 mmHg (14.1-43.3); Cord Venous Blood pH 7.29 (7.20-7.44)
[2018-09-17 12:04] LABS: Base Excess Cord Arterial Bld -10.5 mEq/L (-9-1.8); CO2 Cord Arterial Blood 58 mmHg (39.1-73.5); HCO3 Cord Arterial Blood 19 mmol/L (19.7-28.5); pH Cord Arterial Blood 7.14 (7.1-7.38)
[2018-09-17 12:10] LABS: O2 Saturation Cord Venous Bld < 60.0 % (<68)
[2018-09-17] MEDS ORDERED: HYDROCORTISONE ACETATE 25 MG SUPP PR PRN (12:54)
[2018-09-17] MEDS ORDERED: BISACODYL 10 MG SUPP PR PRN (12:54)
[2018-09-17] MEDS ORDERED: BENZOCAINE 20% AER SPR 82.5 GM CAN EXT PRN (12:54)
[2018-09-17] MEDS ORDERED: OXYTOCIN 30 UNITS/500 ML BAG IV PRN (12:54)
[2018-09-17] MEDS ORDERED: SUPERCREAM 0.870% 15 GM JAR EXT PRN (12:54)
[2018-09-17] MEDS ORDERED: DIPHTHERIA/TETANUS/PERTUSSIS 0.5 ML SYR/VIAL IM ONE (12:54)
[2018-09-17] MEDS ORDERED: ACETAMINOPHEN 325 MG TAB PO PRN (12:54)
--- NOTE | 2018-09-17 13:02 | Anesthesia Procedure Note ---
Date of Service September 17, 2018 Anesthesia Post Epidural Note Vital Signs Vital Signs: Temp Pulse Resp BP Pulse Ox 09/17/18 12:49 91 H 140/86 09/17/18 12:33 89 130/79 09/17/18 12:18 94 H 134/78 09/17/18 12:04 104 H 129/77 09/17/18 11:53 109 H 94 09/17/18 11:49 127 H 144/86 H 09/17/18 11:48 122 H 94 09/17/18 11:47 108 H 94 09/17/18 11:43 107 H 95 09/17/18 11:38 112 H 95 09/17/18 11:33 118 H 135/76 97 09/17/18 11:28 120 H 97 09/17/18 11:23 126 H 96 09/17/18 11:19 121 H 126/70 09/17/18 11:18 122 H 96 09/17/18 11:13 117 H 94 09/17/18 11:08 119 H 95 09/17/18 11:03 105 H 96 09/17/18 11:01 103 H 94 09/17/18 10:57 105 H 96 09/17/18 10:56 101 H 93 09/17/18 10:52 107 H 96 09/17/18 10:50 107 H 92 09/17/18 10:49 113 H 128/64 09/17/18 10:47 107 H 96 09/17/18 10:45 109 H 91 09/17/18 10:42 119 H 96 09/17/18 10:37 112 H 96 09/17/18 10:34 112 H 94 09/17/18 10:33 107 H 121/59 L 09/17/18 10:32 112 H 96 09/17/18 10:29 36.5 C 22 09/17/18 10:28 119 H 93 09/17/18 10:27 118 H 95 09/17/18 10:22 113 H 96 09/17/18 10:21 114 H 91 09/17/18 10:19 117 H 126/58 L 09/17/18 10:17 113 H 85 L 09/17/18 10:13 120 H 93 09/17/18 10:12 108 H 96 09/17/18 10:07 112 H 96 09/17/18 10:06 115 H 94 09/17/18 10:04 146 H 115/84 09/17/18 10:02 100 H 98 09/17/18 09:57 93 H 97 09/17/18 09:54 112 H 94 09/17/18 09:52 87 96 09/17/18 09:49 78 130/77 94 09/17/18 09:47 87 93 09/17/18 09:42 79 94 09/17/18 09:39 83 94 09/17/18 09:37 88 95 09/17/18 09:34 92 H 134/85 09/17/18 09:33 90 94 09/17/18 09:32 106 H 95 09/17/18 09:28 85 94 09/17/18 09:27 86 95 09/17/18 09:22 81 94 09/17/18 09:19 87 136/86 09/17/18 09:18 84 93 09/17/18 09:17 82 95 09/17/18 09:12 88 96 09/17/18 09:10 37.1 C 20 09/17/18 09:07 83 94 09/17/18 09:06 85 94 09/17/18 09:04 78 126/72 09/17/18 09:02 37.1 C 78 20 95 09/17/18 08:59 83 94 09/17/18 08:57 89 96 09/17/18 08:52 86 94 09/17/18 08:49 80 131/74 94 09/17/18 08:47 81 94 09/17/18 08:43 81 94 09/17/18 08:42 81 95 09/17/18 08:37 84 95 09/17/18 08:36 84 94 09/17/18 08:33 92 H 126/79 05 08:32 90 96 05 08:31 86 132/81 0516 08:29 83 133/80 0516 08:27 89 128/77 96 05 08:25 77 128/72 05 08:24 79 94 0516 08:23 81 124/81 0516 08:22 82 95 05 08:21 83 129/82 05 08:19 85 132/86 0516/19 08:17 93 H 134/88 96 09/17/18 08:15 98 H 133/90 09/17/18 08:13 93 H 129/89 09/17/18 08:12 93 H 97 09/17/18 08:11 94 H 134/88 09/17/18 08:09 90 130/89 09/17/18 08:07 96 H 97 09/17/18 08:02 92 H 97 09/17/18 07:57 97 H 98 09/17/18 07:56 98 H 127/87 09/17/18 07:52 87 97 09/17/18 07:47 89 96 09/17/18 07:42 88 97 09/17/18 07:41 85 121/79 09/17/18 07:37 91 H 97 09/17/18 07:32 91 H 97 09/17/18 07:27 91 H 130/82 97 09/17/18 07:22 97 H 96 09/17/18 07:17 99 H 97 09/17/18 07:12 100 H 132/83 96 09/17/18 07:10 37.3 C 22 09/17/18 07:07 98 H 97 09/17/18 07:02 101 H 97 09/17/18 06:57 94 H 125/79 96 09/17/18 06:52 100 H 96 09/17/18 06:47 109 H 97 09/17/18 06:43 101 H 122/81 09/17/18 06:42 100 H 97 09/17/18 06:38 96 H 92 09/17/18 06:37 98 H 98 09/17/18 06:32 96 H 96 09/17/18 06:30 20 09/17/18 06:27 97 H 93 09/17/18 06:26 102 H 122/77 09/17/18 06:22 97 H 95 09/17/18 06:17 103 H 97 09/17/18 06:12 104 H 95 09/17/18 06:11 97 H 126/76 09/17/18 06:07 108 H 96 09/17/18 06:02 96 H 96 09/17/18 05:57 99 H 125/72 97 09/17/18 05:56 37.4 C 20 09/17/18 05:52 90 93 05/16/19 05:48 90 94 09/17/18 05:47 90 95 09/17/18 05:43 107 H 124/67 09/17/18 05:42 92 H 96 09/17/18 05:37 110 H 95 09/17/18 05:36 111 H 94 09/17/18 05:32 99 H 95 09/17/18 05:27 92 H 113/62 94 09/17/18 05:22 92 H 94 09/17/18 05:17 90 93 09/17/18 05:12 88 94 09/17/18 05:11 86 97/53 L 09/17/18 05:08 84 94 09/17/18 05:07 94 H 94 09/17/18 05:03 88 94 09/17/18 05:02 87 94 09/17/18 05:00 20 09/17/18 04:58 118 H 93 09/17/18 04:57 116 H 110/66 95 09/17/18 04:52 87 93 09/17/18 04:47 84 93 09/17/18 04:45 86 94 09/17/18 04:42 102 H 96 09/17/18 04:41 115 H 108/70 09/17/18 04:39 86 94 09/17/18 04:37 90 93 09/17/18 04:32 86 93 09/17/18 04:27 84 111/70 94 09/17/18 04:22 103 H 94 09/17/18 04:20 88 94 09/17/18 04:17 95 H 95 09/17/18 04:14 93 H 94 09/17/18 04:13 92 H 107/67 09/17/18 04:12 87 95 09/17/18 04:07 98 H 97 09/17/18 04:02 88 97 09/17/18 04:00 37.4 C 20 09/17/18 03:58 99 H 94 09/17/18 03:57 105 H 113/70 97 09/17/18 03:52 101 H 98 09/17/18 03:47 92 H 97 09/17/18 03:42 101 H 110/69 97 09/17/18 03:38 101 H 91 09/17/18 03:37 95 H 97 09/17/18 03:32 90 97 05/16/19 03:27 105 H 131/60 97 09/17/18 03:22 98 H 98 09/17/18 03:17 94 H 95 09/17/18 03:15 89 94 09/17/18 03:12 91 H 96 09/17/18 03:11 100 H 112/64 09/17/18 03:08 93 H 94 09/17/18 03:07 96 H 94 09/17/18 03:03 92 H 94 09/17/18 03:02 92 H 95 09/17/18 02:58 93 H 94 09/17/18 02:57 93 H 95 09/17/18 02:56 93 H 108/64 09/17/18 02:52 94 H 94 09/17/18 02:47 90 94 09/17/18 02:46 86 94 09/17/18 02:43 84 103/65 09/17/18 02:42 85 95 09/17/18 02:37 87 95 09/17/18 02:35 83 94 09/17/18 02:32 87 94 09/17/18 02:30 86 94 09/17/18 02:29 20 09/17/18 02:27 86 104/60 95 09/17/18 02:25 84 94 09/17/18 02:22 88 95 09/17/18 02:20 91 H 94 09/17/18 02:17 94 H 95 09/17/18 02:12 98 H 97 09/17/18 02:11 101 H 116/59 L 09/17/18 02:10 37.4 C 09/17/18 02:09 114 H 92 09/17/18 02:07 95 H 97 09/17/18 02:03 90 94 09/17/18 02:02 89 95 09/17/18 02:00 20 09/17/18 01:57 89 96 09/17/18 01:56 98 H 126/75 09/17/18 01:55 100 H 128/79 09/17/18 01:54 101 H 94 09/17/18 01:52 92 H 96 09/17/18 01:49 85 94 09/17/18 01:47 98 H 96 09/17/18 01:42 89 94 09/17/18 01:40 88 125/70 09/17/18 01:37 86 94 09/17/18 01:32 89 94 09/17/18 01:31 84 94 09/17/18 01:27 88 96 09/17/18 01:26 91 H 129/80 09/17/18 01:23 83 94 09/17/18 01:22 85 95 09/17/18 01:17 37.4 C 99 H 20 97 09/17/18 01:12 111 H 97 09/17/18 01:09 100 H 119/72 09/17/18 01:07 111 H 97 09/17/18 01:02 92 H 96 09/17/18 01:00 20 09/17/18 00:57 92 H 95 09/17/18 00:56 94 H 110/66 09/17/18 00:52 98 H 95 09/17/18 00:47 105 H 97 09/17/18 00:42 110 H 96 09/17/18 00:41 92 H 116/69 09/17/18 00:37 95 H 96 09/17/18 00:32 103 H 97 09/17/18 00:27 99 H 97 09/17/18 00:25 107 H 124/83 09/17/18 00:22 101 H 97 09/17/18 00:21 108 H 93 09/17/18 00:17 106 H 96 09/17/18 00:15 37.8 C H 109 H 93 09/17/18 00:12 96 H 98 09/17/18 00:11 98 H 133/78 09/17/18 00:07 104 H 97 09/17/18 00:02 104 H 98 09/16/18 23:57 105 H 98 09/16/18 23:54 102 H 123/71 09/16/18 23:52 100 H 97 09/16/18 23:50 101 H 93 09/16/18 23:47 95 H 98 09/16/18 23:42 110 H 98 09/16/18 23:41 107 H 121/76 09/16/18 23:37 112 H 98 09/16/18 23:32 104 H 98 09/16/18 23:27 93 H 97 09/16/18 23:25 95 H 125/78 09/16/18 23:22 106 H 97 09/16/18 23:17 93 H 97 05/15/19 23:12 92 H 98 09/16/18 23:11 96 H 127/81 09/16/18 23:07 90 97 09/16/18 23:02 91 H 97 09/16/18 23:00 20 09/16/18 22:57 90 98 09/16/18 22:56 91 H 130/78 09/16/18 22:52 115 H 98 09/16/18 22:47 105 H 99 09/16/18 22:42 98 H 98 09/16/18 22:40 97 H 130/80 09/16/18 22:37 114 H 98 09/16/18 22:32 101 H 98 09/16/18 22:27 105 H 98 09/16/18 22:25 107 H 134/81 09/16/18 22:22 107 H 98 09/16/18 22:17 114 H 98 09/16/18 22:12 100 H 98 09/16/18 22:10 116 H 112/73 09/16/18 22:07 91 H 96 09/16/18 22:02 98 H 97 09/16/18 22:00 09/16/18 21:57 97 H 97 09/16/18 21:55 101 H 127/69 09/16/18 21:52 95 H 98 09/16/18 21:47 111 H 97 09/16/18 21:44 106 H 93 09/16/18 21:42 106 H 97 09/16/18 21:41 95 H 119/73 09/16/18 21:37 113 H 99 09/16/18 21:32 103 H 98 09/16/18 21:27 101 H 98 09/16/18 21:25 101 H 131/82 09/16/18 21:22 99 H 97 09/16/18 21:17 83 97 09/16/18 21:12 90 97 09/16/18 21:11 86 126/75 09/16/18 21:07 91 H 97 09/16/18 21:02 97 H 98 09/16/18 21:00 37.4 C 20 09/16/18 20:57 100 H 97 09/16/18 20:54 105 H 144/86 H 09/16/18 20:52 103 H 98 09/16/18 20:47 89 97 09/16/18 20:42 85 98 05 20:40 85 136/76 09/16/18 20:37 97 H 98 09/16/18 20:32 98 H 97 09/16/18 20:30 20 09/16/18 20:27 92 H 98 09/16/18 20:25 94 H 144/79 H 09/16/18 20:22 93 H 98 09/16/18 20:17 94 H 98 09/16/18 20:12 89 97 09/16/18 20:07 93 H 98 09/16/18 20:02 102 H 99 09/16/18 20:00 20 09/16/18 19:57 97 H 98 09/16/18 19:55 100 H 138/85 09/16/18 19:52 96 H 97 09/16/18 19:47 114 H 97 09/16/18 19:42 114 H 97 09/16/18 19:40 111 H 136/69 09/16/18 19:37 104 H 97 09/16/18 19:32 102 H 98 09/16/18 19:30 20 09/16/18 19:27 103 H 98 09/16/18 19:26 104 H 118/72 09/16/18 19:22 107 H 98 09/16/18 19:17 103 H 97 09/16/18 19:12 104 H 98 09/16/18 19:11 107 H 108/71 09/16/18 19:10 37.1 C 18 09/16/18 19:07 107 H 98 09/16/18 19:02 102 H 98 09/16/18 18:57 109 H 99 09/16/18 18:55 100 H 144/67 H 09/16/18 18:52 96 H 99 09/16/18 18:47 97 H 97 09/16/18 18:42 111 H 98 09/16/18 18:40 100 H 109/71 09/16/18 18:37 101 H 98 09/16/18 18:36 37.5 C 94 H 20 130/68 09/16/18 18:32 99 H 98 09/16/18 18:27 90 99 09/16/18 18:26 169 H 135/96 09/16/18 18:22 88 98 05/15/19 18:17 82 98 05/19 18:12 81 98 09/16/18 18:10 78 154/88 H 09/16/18 18:07 77 98 09/16/18 18:02 87 99 09/16/18 17:57 84 98 09/16/18 17:55 79 18 143/83 H 09/16/18 17:52 98 H 97 09/16/18 17:47 91 H 97 09/16/18 17:42 86 98 09/16/18 17:40 93 H 148/82 H 09/16/18 17:37 82 99 09/16/18 17:32 90 98 09/16/18 17:27 94 H 99 09/16/18 17:25 80 153/86 H 09/16/18 17:22 87 98 09/16/18 17:17 80 99 09/16/18 17:12 81 99 09/16/18 17:10 76 16 142/82 H 09/16/18 17:07 79 99 09/16/18 17:02 91 H 99 09/16/18 16:57 83 98 09/16/18 16:55 119/63 09/16/18 16:52 84 99 09/16/18 16:47 83 98 09/16/18 16:42 97 H 98 09/16/18 16:41 84 16 108/67 09/16/18 16:37 88 98 09/16/18 16:32 83 97 09/16/18 16:27 96 H 98 09/16/18 16:26 37.1 C 81 18 135/80 09/16/18 16:22 91 H 97 09/16/18 16:17 77 98 09/16/18 16:12 92 H 98 09/16/18 16:11 86 18 133/73 09/16/18 16:07 78 99 09/16/18 16:02 86 99 09/16/18 15:57 77 97 0515 15:53 95 H 117/71 05 15:52 95 H 96 051519 15:51 88 107/65 [id number] 15:49 88 103/66 0515/19 15:47 96 H 121/64 97 0515/19 15:45 90 117/72 051519 15:43 86 121/65 [id number] 15:42 71 127/57 L 97 09/16/18 15:40 134 H 93/66 L 09/16/18 15:37 93 H 128/74 98 09/16/18 15:35 91 H 121/73 09/16/18 15:33 92 H 117/70 09/16/18 15:32 92 H 96 09/16/18 15:31 75 118/64 09/16/18 15:30 83 116/66 09/16/18 15:27 82 18 122/69 96 09/16/18 15:25 74 116/64 09/16/18 15:23 78 18 116/70 09/16/18 15:22 76 97 09/16/18 15:21 75 18 116/65 09/16/18 15:19 83 121/67 09/16/18 15:17 70 18 110/66 97 09/16/18 15:15 74 112/64 09/16/18 15:13 83 18 110/57 L 09/16/18 15:12 78 97 09/16/18 15:11 74 18 118/62 09/16/18 15:10 71 121/63 09/16/18 15:07 37.0 C 86 18 113/56 L 96 09/16/18 15:05 89 140/74 09/16/18 15:02 85 205/116 H 95 09/16/18 14:59 72 137/89 09/16/18 14:57 84 135/82 96 09/16/18 14:55 85 134/79 09/16/18 14:53 76 142/84 H 09/16/18 14:52 78 96 09/16/18 14:51 78 146/83 H 09/16/18 14:49 73 145/86 H 09/16/18 14:47 73 146/84 H 96 09/16/18 14:45 77 156/86 H 09/16/18 14:43 70 159/74 H 09/16/18 14:42 75 99 09/16/18 14:41 80 158/84 H 09/16/18 14:37 79 98 09/16/18 14:32 68 98 09/16/18 14:27 84 99 09/16/18 14:22 73 97 09/16/18 13:34 36.9 C 18 09/16/18 13:05 83 18 135/86 Pain Intensity Left Lower Abdomen: Pain Intensity: 4 Notes Mental Status: alert / awake / arousable Patient Amnestic to Procedure: No Nausea / Vomiting: adequately controlled Pain: adequately controlled Airway Patency, RR, SpO2: stable & adequate BP & HR: stable & adequate Hydration State: stable & adequate Neuraxial Anesthesia: was administered and sensory block is resolving Anesthetic Complications: no major complications apparent and Pt Satisfied with anesthetic care Epidural: Removed without complications and With tip intact
[2018-09-17] MEDS: IBUPROFEN 600 MG TAB PO PRN ×2 (14:48→20:20)
--- NOTE | 2018-09-17 14:53 | Delivery Summary ---
DATE OF OPERATION: 09/17/2018 PROCEDURE: Normal spontaneous vaginal delivery with second degree laceration repair. SURGEON: Walter Gallo MD. PREOPERATIVE DIAGNOSES: 1. Single intrauterine at 40 weeks 3 days gestational age. 2. In vitro fertilization with ICSI. 3. Advanced maternal age. 4. Right multicystic kidney. POSTOPERATIVE DIAGNOSES: 1. Single intrauterine at 40 weeks 3 days gestational age. 2. In vitro fertilization with ICSI. 3. Advanced maternal age. 4. Right multicystic kidney. 5. Meconium-stained fluid. 6. Delivered. ESTIMATED BLOOD LOSS: 300 mL DRAINS: Straight cath at the completion of the case. FLUIDS: Continuous lactated Ringer. URINE OUTPUT: Approximately 150 mL at the completion of the case. COMPLICATIONS: None. FINDINGS: Viable female with weight and Apgars pending. INDICATIONS: Ms. Gr is a 38-year-old G1, P0, admitted at 40 weeks 3 days gestational age for an elective induction of labor. Upon presentation, the patient underwent artificial rupture of membranes. She was subsequently started on oxytocin per regular protocol. She progressed in labor. The patient was noted to have some late and variable decelerations, and oxytocin was discontinued x1, at which time the patient was found to be 9 cm dilated. Oxytocin was restarted approximately an hour to an hour and a half later and the patient was noted to progress in labor to 9.5 cm dilated, at which time she attempted to push to relieve the anterior lip. After approximately 3 contractions, the patient was able to push beyond the anterior lip and continued to push until delivery. DESCRIPTION OF PROCEDURE: The patient progressed to 10 cm dilated, 100% effaced, positive 1-2 station, pushed over an intact perineum with epidural anesthesia and delivered a viable female with weight and Apgars pending. Head of the delivered in RIC position, restituted to right transverse. No nuchal was noted. Body and shoulders quickly followed. The was noted to be floppy upon delivery with meconium-stained fluid. The cord was quickly double clamped and cut, and the was taken out to the waiting nursery staff for resuscitation. Attention was then turned to deliver the placenta, which was delivered intact with 3-vessel cord with gentle cord traction. On inspection of the vagina, perineum and cervix, there was noted to be a second degree perineal laceration, which was repaired with 3-0 Vicryl in continuous and traditional crown stitch. Needle, sponge and instrument counts were correct at the completion of the case. Both mother and were stable in the immediate period. I attest to the content of the Intraoperative Record and any orders documented therein. Any exception s are noted below.
[2018-09-17] MEDS: DOCUSATE SODIUM 100 MG CAP PO SCH (20:18)
[2018-09-18] MEDS: IBUPROFEN 600 MG TAB PO PRN ×3 (03:36→20:57)
[2018-09-18 06:58] LABS: Hematocrit (blood only) 30.5 % (37-47); Hemoglobin 10.6 g/dL (12.0-16.0)
--- NOTE | 2018-09-18 07:24 | Obstetrical Progress Note ---
Date of Service September 18, 2018 Assessment & Plan (1) Status post vaginal delivery: 38yo presented @ 40 3/7 for eIOL for post dates. 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 -Vital signs WNL bp 117/78 T36.6, -Hemoglobin is 10.6 down from 12.1 on admission. no si/sx of anemia. -Pt is doing clinically well -Continue to encourage ambulation as tolerated, Monitor and control pain with motrin prn, Continue diet as tolerated. -Continue to support and encourage breast feeding -Routine care Supervising Physician Co-Signing Physician Notes Patient seen and evaluated and agree with the above findings and plan Subjective pt sitting up in bed with baby in her arms and dad sleeping across the room on the chair. Patient is tolerating her diet, ambulating, passing gas and voiding, still no bm. Reports moderate lochia. Denies H/A, chest pain, palpitations and uti syx. Answered all questions, no concerns at present, pain is well controlled Physical Exam Physical Exam: Constitutional: WD/WN, vitals as above no acute distress Eyes: normal visual snyder by confrontation Neck: normal visual inspection Respiratory: normal respiratory effort, lungs clear to auscultation Cardiovascular: RRR, no murmur, no edema Heart Sounds: normal S1 and normal S2 Extremities: no calf tenderness Gastrointestinal (Abdomen): Uterus firm and below the umbilicus Results & Data Vital Signs (Past 12 Hours) Vital Signs Temp Pulse Resp BP Pulse Ox 09/18/18 03:35 36.6 C 80 16 117/78 97 09/17/18 23:00 36.6 C 83 16 136/83 97 09/17/18 20:20 36.7 C 90 16 128/89 97 Laboratory Results 09/18/18 09/17/18 09/17/18 Range/Units 06:36 11:06 11:06 Hgb 10.6 L (12.0-16.0) g/dL Hct 30.5 L (37-47) % Cord ABG pH 7.14 (7.1-7.38) Cord ABG pCO2 58 (39.1-73.5) mmHg Cord ABG pO2 22.0 (4.1-31.7) % Cord ABG HCO3 19 L (19.7-28.5) mmol/L Cord ABG Base Excess -10.5 L (-9-1.8) mEq/L Cord ABG O2 Sat < 60.0 (<60) % Cord VBG pH 7.29 (7.20-7.44) Cord VBG pCO2 38 (30.4-57.2) mmHg Cord VBG pO2 27 (14.1-43.3) mmHg Cord VBG HCO3 18 L (18.4-26.8) mmol/L Cord VBG Base Excess -7.7 (-7.7-1.9) mEq/L Cord VBG O2 Sat < 60.0 (<68) % Barometric Pressure 730.8 730.8 mm/Hg Blood Gas Comments MARTINEZ MARTINEZ Medications Administered Current Inpatient Medications Acetaminophen (Tylenol) 650 mg PO Q6H PRN PRN Reason: Pain/EDWARDS/Fever Stop: 10/17/18 12:53 Benzocaine (Dermoplast Pain Relieving [place]) 1 appln EXT PRN PRN PRN Reason: Perineal Discomfort Stop: 10/17/18 12:53 Last Admin: 09/17/18 16:34 Dose: 82.5 appln Documented by: Bisacodyl (Dulcolax) 5 mg PO 2000 [facility] Stop: 09/18/18 20:01 Bisacodyl (Dulcolax) 10 mg [place] DAILY PRN PRN Reason: No BM on 2nd post- day Stop: 10/17/18 12:53 Cocaine HCl (Supercream 0.870%) 1 gm EXT BID PRN PRN Reason: Hemorrhoidal Inflammation Stop: 10/01/18 12:53 Last Admin: 09/17/18 16:34 Dose: 1 appln Documented by: Docusate Sodium (Colace) 100 mg PO BID [facility] Stop: 10/17/18 20:59 Last Admin: 09/17/18 20:18 Dose: 100 mg Documented by: Hydrocortisone (Anusol Hc) 25 mg [place] BID PRN PRN Reason: Hemorrhoidal Inflammation Stop: 10/17/18 12:53 Lactated Ringer's (Lr) 1,000 mls @ 125 mls/hr IV .Q8H PRN; Protocol PRN Reason: L&D Protocol Stop: 09/18/18 08:18 Last Infusion: 09/17/18 14:44 Dose: Infused Documented by: Oxytocin (Pitocin) 30 units in 500 mls @ 333.333 mls/hr IV .Q1H30M PRN; Protocol PRN Reason: Bleeding Control Stop: 10/16/18 08:18 Ibuprofen (Motrin) 600 mg PO Q4H PRN PRN Reason: Pain/EDWARDS/Cramping/Fever Stop: 10/17/18 12:53 Last Admin: 09/18/18 03:36 Dose: 600 mg Documented by: Merari Multivit/[employer]/Iron/Folic Ac ( Vitamin) 1 tab PO QAM [facility] Stop: 10/18/18 08:59 Resident Activity Tracking Resident Involvement: Resident Care Provided Care Provided: Adult Hospital Medicine
[2018-09-18] MEDS: DOCUSATE SODIUM 100 MG CAP PO SCH ×2 (09:47→20:56)
[2018-09-18] MEDS: PRENATAL VITAMIN 1 TAB PO SCH (09:47)
[2018-09-18] MEDS ORDERED: BISACODYL 5 MG TABEC PO SCH (20:00)
--- NOTE | 2018-09-19 07:27 | Obstetrical Progress Note ---
Date of Service September 19, 2018 Assessment & Plan (1) Status post vaginal delivery: 38yo presented @ 40 3/7 for eIOL for post dates. 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 currently ppd2 -Vital signs WNL bp 128/77 T36.7, -Hemoglobin is 10.6 down from 12.1 on admission. no si/sx of anemia. -Pt is doing clinically well -Continue to encourage ambulation as tolerated, Monitor and control pain with motrin prn, Continue diet as tolerated. -Continue to support and encourage breast feeding -Counseled patient on discharge instructions including Vaginal bleeding, fevers, followup, lifting restrictions, breast feeding, vitamins, and nothing in the vagina for 6 weeks. Pt was agreeable -Plan for d/c today Supervising Physician Co-Signing Physician Notes Resident Physician Supervision Note: I interviewed and examined the patient. Discussed with [Joey] and agree with findings and plan as documented in the note. Any exceptions or clarifications are listed here: [None] Documented By: Darrian Albright MD, FACOG Subjective pt stading up organizing the room in no acut distress, pt did well overnight. Patient is tolerating her diet, ambulating, passing gas and voiding, still no bm. Reports moderate lochia. Denies H/A, chest pain, palpitations and uti syx. Answered all questions, no concerns at present, pain is well controlled Physical Exam Physical Exam: Constitutional: WD/WN, vitals as above no acute distress Eyes: normal visual snyder by confrontation Neck: normal visual inspection Respiratory: normal respiratory effort, lungs clear to auscultation Cardiovascular: RRR, no murmur, no edema Heart Sounds: normal S1 and normal S2 Extremities: no calf tenderness Gastrointestinal (Abdomen): Uterus firm and below the umbilicus Results & Data Vital Signs (Past 12 Hours) Vital Signs Temp Pulse Resp BP Pulse Ox 09/19/18 00:40 36.7 C 65 18 128/77 09/18/18 20:20 36.9 C 92 H 18 136/86 100 Medications Administered Current Inpatient Medications Acetaminophen (Tylenol) 650 mg PO Q6H PRN PRN Reason: Pain/EDWARDS/Fever Stop: 10/17/18 12:53 Benzocaine (Dermoplast Pain Relieving [place]) 1 appln EXT PRN PRN PRN Reason: Perineal Discomfort Stop: 10/17/18 12:53 Last Admin: 09/17/18 16:34 Dose: 82.5 appln Documented by: Bisacodyl (Dulcolax) 10 mg [place] DAILY PRN PRN Reason: No BM on 2nd post- day Stop: 10/17/18 12:53 Cocaine HCl (Supercream 0.870%) 1 gm EXT BID PRN PRN Reason: Hemorrhoidal Inflammation Stop: 10/01/18 12:53 Last Admin: 09/17/18 16:34 Dose: 1 appln Documented by: Docusate Sodium (Colace) 100 mg PO BID [facility] Stop: 10/17/18 20:59 Last Admin: 09/18/18 20:56 Dose: 100 mg Documented by: Hydrocortisone (Anusol Hc) 25 mg [place] BID PRN PRN Reason: Hemorrhoidal Inflammation Stop: 10/17/18 12:53 Oxytocin (Pitocin) 30 units in 500 mls @ 333.333 mls/hr IV .Q1H30M PRN; Protocol PRN Reason: Bleeding Control Stop: 10/16/18 08:18 Ibuprofen (Motrin) 600 mg PO Q4H PRN PRN Reason: Pain/EDWARDS/Cramping/Fever Stop: 10/17/18 12:53 Last Admin: 09/18/18 20:57 Dose: 600 mg Documented by: [place] Multivit/[place]/Iron/Folic Ac ( Vitamin) 1 tab PO QAM [facility] Stop: 10/18/18 08:59 Last Admin: 09/18/18 09:47 Dose: 1 tab Documented by: Resident Activity Tracking Resident Involvement: Resident Care Provided Care Provided: Adult Hospital Medicine
[2018-09-19] MEDS: PRENATAL VITAMIN 1 TAB PO SCH (09:08)
[2018-09-19] MEDS: DOCUSATE SODIUM 100 MG CAP PO SCH (09:08)
== END 2018-09-19 16:20 | disposition home or self-care (01) | DRG 807 ==
LOC: 4S1 07:32 → 4S2 09-17 15:18